=== PATIENT | male | born 1985 | race Caucasian/White ===

== ENCOUNTER → 2017-01-20 | Outpatient (CLI) | payer SELFPAY ==
[~2017-01-20] MED LIST: BENADRYL25 M2 PO; CEPHALEXIN500 M1 PO; DEXILANT60 MG PO; NORCO 325 MG-51 TAB PO; PROTONIX 40MG T40 MG PO
== END ==
LOC: COL.RAD 07:40
DX: K46.9 Unspecified abdominal hernia without obstruction or gangrene (principal)